=== PATIENT | female | born 1975 | race Caucasian/White ===

== ENCOUNTER → 2020-12-15 17:04 | Outpatient (CLI) | payer BC, SELFPAY ==
--- NOTE | ~2020-12-15 | MM_ITS ---
EXAMINATION: MM screening [facility] BI w carissa HISTORY: Screening mammogram TECHNIQUE: Craniocaudal and mediolateral oblique 3-D tomosynthesis images were obtained and synthetic 2-D images were generated. CAD analysis was submitted and interpreted. COMPARISON: 07/26/2019, 06/16/2018 BREAST PARENCHYMAL COMPOSITION: The breasts are almost entirely fatty. FINDINGS: There is no evidence of suspicious mass, calcification, or architectural distortion to sugg est malignancy in either breast. There has been no suspicious interval change. IMPRESSION: 1. No mammographic evidence of malignancy. 2. Recommend routine screening mammography in one year. BI-RADS Category 1: Negative Reviewed, dictated and finalized at location A. [employer]PER[employer]
== END ==
PROVIDERS: Visit Provider Nurse Practitioner
DX: Z12.31 Encounter for screening mammogram for malignant neoplasm of breast (principal)
CPT/HCPCS: 77063; 77067

== ENCOUNTER → 2021-08-15 14:19 | Outpatient (CLI) | payer BC, SELFPAY ==
--- NOTE | ~2021-08-15 | US_ITS ---
US transvaginal DATE: 08/15/2021 14:51 INDICATION: Abnormal uterine bleeding; irregular bleeding every 3-4 days TECHNIQUE: Real-time imaging via transvaginal approach COMPARISON: 05/12/2018 transvaginal pelvic ultrasound FINDINGS: The retroverted uterus measures 8.5 cm height, 4.7 cm anteroposterior and 5.0 cm transverse dimension. The central endometrial echo complex measures 7 mm, within normal range. Nabothian cysts of the uterine cervix. Right ovary measures 2.3 x 1.8 x 2.0 cm, with vascular flow and follicles. The left ovary is not demonstrated. No pelvic mass or abnormal pelvic free fluid collection is noted. IMPRESSION: Left ovary not demonstrated; otherwise unremarkable examination Reviewed, dictated and finalized at Location A. Reviewed, dictated and finalized at location A.
== END ==
PROVIDERS: Visit Provider Nurse Practitioner
DX: N93.8 Other specified abnormal uterine and vaginal bleeding (principal)
CPT/HCPCS: 76830

== ENCOUNTER 2021-10-29 00:08 | Day surgery (SDC) | payer BC, SELFPAY ==
[2021-10-10 10:46] VITALS: BMI 57.9
--- NOTE | 2021-10-10 10:52 | PC.NURSE ---
Report to the Outpatient Waiting Room, entrance under the green pavilion located off [facility], at time 0900 on date 10/15/21. OR Time: 1100. - You will be asked a series of questions to screen for COVID 19 for your protection. - A mask is required within the hospital. - No visitors are allowed at this time. Preoperative COVID Testing Requirements: No COVID Test needed if: (proof is required; if not received patient will have Rapid Test prior to entry) - Patient has received COVID Vaccine at least 14 days prior to procedure date or - Patient has positive COVID test result within last 90 days of surgery date. COVID Test needed if above criteria is not met Patients may have clear liquids (water, carbonated beverages, clear teas, apple juice) until 3 hours prior to surgery with a maximum of 20 ounces. - No food from midnight until time of surgery Take the following medications with a SIP of water the morning of surgery: NONE Medications to discontinue per physician: VITAMINS/SUPPLEMENTS Date to take last dose: 10/11/21 Please no make-up, nail frisian, hairspray, perfume, deodorant, or body powder the day of surgery. No jewelry (including any body piercings) or valuables the day of surgery, leave them at home. Please take a shower or bath the night before, or the morning of, surgery with an antibacterial soap. Wear comfortable, loose fitting clothing. Children are encouraged to wear pajamas. - Jewelry must be removed prior to entering the operating room. Rings and piercings that are not removed may be cut off. - The hospital will not accept responsibility for valuables. - Please leave all valuables, including medications, at home the day of surgery. If you are going home after surgery, a licensed hearse driver must drive you home. - NO public transportation without another adult. - We recommend that an adult stay with you for 24 hours following discharge. - We also recommend that you do not drive, make important decision, drink alcoholic beverages, or take any drugs that were not prescribed by your health care provider for at least 24 hours after your discharge time. Follow any additional instructions given to you from your surgeon. Telephone instructions given to FELICE DIMAS and asked if any additional questions and then verbalized understanding. Patient advised to call surgeon office or pre surgery nurse liaison [phone] if any additional questions.
--- NOTE | 2021-10-15 07:34 | WPDHPUPDATE1 ---
History and Physical Update Update Date/Time: 10/15/21 07:34 History and Physical has been reviewed, including an updated exam of the patient. There are NO changes in the patient's condition. Risks, benefits, and alternatives have been discussed and questions answered. Patient agrees to proceed with procedure.
--- NOTE | 2021-10-15 07:34 | PM.HPGS ---
History of Present Illness History of Present Illness Consent: Risks, benefits, and alternatives have been discussed and questions answered. Patient agrees to proceed with procedure. Chief complaint: Abnormal Uterine Bleeding Narrative: Mehreen Early is a 46 year old female with onset of irregular cycles January of 2021. Patient presented to the office August 10, 2021 with reports irregular cycles for 6 months. Patient states she is bleeding frequently with no pattern and 7 days heavy some days light. It was recommended to proceed with hysteroscopy D&C. Risks of infection, bleeding, and perforation were reviewed. Possible pathology was also discussed. Review of Systems Review of Systems: not repeated day of surgery; patient states no changes in status PMFSH Past Medical History Medical History (Updated 10/15/21 @ 07:38 by Tarah Fernandes MD) HTN (hypertension) PCOS (polycystic ovarian syndrome) Surgical History Surgical History (Updated 10/15/21 @ 07:37 by Tarah Fernandes MD) History of Hx of tonsillectomy Social History Social History Smoking status: Never smoker Alcohol intake: never Substance use: never Substance use type: does not use Living arrangements: with family Spiritual care concerns: No Meds Home Medications and Allergies Home Medications Medication Instructions Recorded Confirmed Type ascorbic acid (vitamin C) [Vitamin 250 mg PO DAILY 10/10/21 10/10/21 History C] cholecalciferol (vitamin D3) 25 mcg PO DAILY 10/10/21 10/10/21 History [Vitamin D3] Allergies Allergy/AdvReac Type Severity Reaction Status Date / Time Penicillins Allergy Mild HIVES - Unverified 10/10/21 10:44 PER OB Exam Narrative: BMI of 59 Const: General: healthy appearing and alert Orientation/consciousness: patient oriented x3 GI: GI Palp: Yes Soft to palpation, No Tenderness to palpation present (GI) and No Palpable mass present : External Female Exam: normal external appearance Speculum Exam - Vagina: normal appearance of the vagina and normal vaginal discharge Speculum Exam - Cervix: normal appearance of the cervix Bimanual exam- vagina & uterus: uterine size normal and consistency normal Bimanual Exam- Adnexa, other: normal adnexae and No adnexal tenderness Neuro: General: patient oriented x3 Assessment and Plan Assessment and plan (1) Menometrorrhagia: Code(s): N92.1 - Excessive and frequent menstruation with irregular cycle Status: Acute Assessment and Plan: The plan is to proceed with D&C hysteroscopy.
--- NOTE | 2021-10-25 10:35 | PC.NURSE ---
Pt states no changes in medication since initial interview. Procedure was rescheduled due to pt illness. Pt states she tested negative for Covid x2 tests and symptoms are better. New pre-op instructions reviewed with pt. Pt denies further questions at this time.
--- NOTE | 2021-10-25 10:37 | PC.NURSE ---
Report to the Outpatient Waiting Room, entrance under the green pavilion located off [facility], at time 0615 on date 10/29/21. OR Time: 0815. - You will be asked a series of questions to screen for COVID 19 for your protection. - A mask is required within the hospital. - No visitors are allowed at this time. Preoperative COVID Testing Requirements: No COVID Test needed if: (proof is required; if not received patient will have Rapid Test prior to entry) - Patient has received COVID Vaccine at least 14 days prior to procedure date or - Patient has positive COVID test result within last 90 days of surgery date. COVID Test needed if above criteria is not met Patients may have clear liquids (water, carbonated beverages, clear teas, apple juice) until 3 hours prior to surgery with a maximum of 20 ounces. - No food from midnight until time of surgery Take the following medications with a SIP of water the morning of surgery: NONE Medications to discontinue per physician: VITAMINS/SUPPLEMENTS Date to take last dose: 10/25/21 Please no make-up, nail thai, hairspray, perfume, deodorant, or body powder the day of surgery. No jewelry (including any body piercings) or valuables the day of surgery, leave them at home. Please take a shower or bath the night before, or the morning of, surgery with an antibacterial soap. Wear comfortable, loose fitting clothing. Children are encouraged to wear pajamas. - Jewelry must be removed prior to entering the operating room. Rings and piercings that are not removed may be cut off. - The hospital will not accept responsibility for valuables. - Please leave all valuables, including medications, at home the day of surgery. If you are going home after surgery, a licensed local company refrigerated truck driver must drive you home. - NO public transportation without another adult. - We recommend that an adult stay with you for 24 hours following discharge. - We also recommend that you do not drive, make important decision, drink alcoholic beverages, or take any drugs that were not prescribed by your health care provider for at least 24 hours after your discharge time. Follow any additional instructions given to you from your surgeon. Telephone instructions given to FELICE DIMAS and asked if any additional questions and then verbalized understanding. Patient advised to call surgeon office or pre surgery nurse liaison [phone] if any additional questions.
[2021-10-29 06:21] VITALS: BP 169/118; PULSE 78; RESP 20; TEMP 36.6; O2SAT 100
[2021-10-29] MEDS: ACETAMINOPHEN 500 MG TABLET 1000 MG PO (06:56)
[2021-10-29] MEDS: LACTATED RINGERS 1,000 ML 30 ML IV CONT (07:00)
--- NOTE | 2021-10-29 07:07 | WPDHPUPDATE1 ---
History and Physical Update Update Date/Time: 10/29/21 07:07 History and Physical has been reviewed, including an updated exam of the patient. There are NO changes in the patient's condition. Risks, benefits, and alternatives have been discussed and questions answered. Patient agrees to proceed with procedure.
--- NOTE | 2021-10-29 07:07 | PM.HPGS ---
History of Present Illness History of Present Illness Consent: Risks, benefits, and alternatives have been discussed and questions answered. Patient agrees to proceed with procedure. Chief complaint: Abnormal Uterine Bleeding Narrative: Mehreen Early is a 46 year old female with abnormal uterine bleeding. Patient with frequent, random bleeding episodes for over 6 months. U/s normal endometrium. Recommend futher evaluation with hysteroscopy and D&C. Risks of infection, bleeding, perforation, and possible pathology discussed. Agrees to proceed. Review of Systems Review of Systems: not repeated day of surgery; patient states no changes in status [facility] Past Medical History Medical History (Updated 10/15/21 @ 07:38 by Tarah Fernandes MD) HTN (hypertension) PCOS (polycystic ovarian syndrome) Surgical History Surgical History (Updated 10/15/21 @ 07:37 by Tarah Fernandes MD) History of Hx of tonsillectomy Social History Social History Smoking status: Never smoker Alcohol intake: never Substance use: never Substance use type: does not use Living arrangements: with family Spiritual care concerns: No Meds Home Medications and Allergies Home Medications Medication Instructions Recorded Confirmed Type ascorbic acid (vitamin C) [Vitamin 250 mg PO DAILY 10/10/21 10/29/21 History C] cholecalciferol (vitamin D3) 25 mcg PO DAILY 10/10/21 10/29/21 History [Vitamin D3] Allergies Allergy/AdvReac Type Severity Reaction Status Date / Time Penicillins Allergy Mild HIVES - Unverified 10/29/21 06:55 PER OB Exam Const: General: alert and other Nutritional Appearance: other (BMI 59) Orientation/consciousness: patient oriented x3 Resp: Effort & Inspection: normal respiratory effort Auscultation: clear to auscultation bilaterally Cardio: Rate: regular rate Rhythm: regular rhythm GI: GI Palp: Yes Soft to palpation, No Tenderness to palpation present (GI) and No Palpable mass present : External Female Exam: normal external appearance Speculum Exam - Vagina: normal appearance of the vagina and normal vaginal discharge Speculum Exam - Cervix: Other cervical findings present (very difficult to visualize cervix) Bimanual exam- vagina & uterus: uterine size normal and consistency normal Bimanual Exam- Adnexa, other: normal adnexae and No adnexal tenderness Neuro: General: patient oriented x3 Assessment and Plan Assessment and plan (1) Menometrorrhagia: Code(s): N92.1 - Excessive and frequent menstruation with irregular cycle Status: Acute Assessment and Plan: Plan to proceed with hysteroscopy and D&C
--- NOTE | 2021-10-29 07:22 | WPDANESEPPF ---
Anes - Initial Pre Proc Eval Procedure: Operation Date: 10/15/21 11:00 Proposed Procedures p Hysteroscopy, Dilation and Curettage - Tarah Fernandes MD Operation Date: 10/29/21 08:15 Proposed Procedures p Hysteroscopy Dilation and Curettage - Tarah Fernandes MD Date/Time: 10/29/21 07:22 Surgeon: Tarah Fernandes MD Pre Op Diagnosis: Abnormal Uterine Bleeding Patient Data Age: 46 Gender: F Height: 1.7 m Weight: 167.83 kg Allergies Allergy/AdvReac Type Severity Reaction Status Date / Time Penicillins Allergy Mild HIVES - Unverified 10/29/21 06:55 PER OB Home Medications Medication Instructions Recorded Confirmed Type ascorbic acid (vitamin C) [Vitamin 250 mg PO DAILY 10/10/21 10/29/21 History C] cholecalciferol (vitamin D3) 25 mcg PO DAILY 10/10/21 10/29/21 History [Vitamin D3] Patient hx anesthesia problems: none Family hx anesthesia problems: none Results Review: All pre-operative results and documents have been reviewed as part of the pre-operative evaluation. [facility] [place] Past Medical History Medical History HTN (hypertension) PCOS (polycystic ovarian syndrome) Surgical History Surgical History History of Hx of tonsillectomy Social History Social History Smoking status: Never smoker Alcohol intake: never Substance use: never Substance use type: does not use Living arrangements: with family Spiritual care concerns: No Anes - Eval Final PreProcedure Day of Procedure 10/29/21 07:22 Patient weight: super morbidly obese Heart: regular rate and rhythm Lungs: clear to auscultation Airway: Mallampati scale class II Neurological: alert and oriented Last oral intake: >/= 8 hours ASA classification: III Emergent: no Anesthetic plan: proceed Anesthesia type and monitoring: general GIVS and standard monitoring Results Review: All pre-operative results and documents have been reviewed as part of the pre-operative evaluation. Informed Consent: The patient's anesthetic plan and its attendant risks and benefits were discussed with the patient/family/POA. Questions were solicited and answers provided to the satisfaction of the patient/family/POA.
[2021-10-29] MEDS: LIDOCAINE HCL 1% PF 30 ML VIAL INFILTRATE (08:26)
--- NOTE | 2021-10-29 08:55 | W.PM.PROC2 ---
Procedure Note - Detailed Date of Procedure 10/29/21 Pre-op Diagnosis Abnormal Uterine Bleeding Post-op Diagnosis same Procedure Performed D&C hysteroscopy with MyoSure resection Surgeon Tarah Fernandes MD Anesthesia MAC and local Findings Cervix is very deep set and the vagina narrows as it enters the upper portion of the vagina. Uterus sounds to 8cm. Large central polyp that is very vascular. Remainder of endometrium appears grossly normal Description of Procedure The patient was taken to the operating room and placed under anesthesia in the dorsal lithotomy position. She was prepped and draped in the usual sterile fashion. The Graves speculum was placed in unable to be opened. The Sosa speculum was placed and upon opening it no cervix is visible. The tenaculum is used to grasp the moved the posterior tissue at of the visual field and the cervix is barely visible. A 2nd tenaculum was used to grasp the anterior lip of the cervix. The cervix is attempted to be pulled down into the speculum and this is somewhat successful. The os Finders are used to enter the cervix. The uterus is sounded to 8cm. The angle of the canal is very anterior. The cervix is serially dilated with difficulty. The hysteroscope is placed in the external cervix and in order to get angle correct the speculum had to be removed. The hysteroscope was placed inside the endometrial cavity with the above-stated findings. The MyoSure device is opened and with the same difficulty it is placed. The polyp was removed under direct visualization. The MyoSure device is removed the speculum replaced and the medium sharp curette used to sharply curette the endometrium until a good uterine cry is noted in all areas. All instruments were then removed and the patient awakened from anesthesia and taken to recovery in stable condition. Sponge, needle, and instrument counts are correct per the OR staff. Estimated Blood Loss 10 Drains No Packing No Pathology yes (Endometrial shavings and curettings) Complications No immediate complications Condition stable Disposition PACU
[2021-10-29] MEDS: KETOROLAC 30 MG/ML VIAL (*BKC) IV PUSH (08:59)
[2021-10-29 09:02] VITALS: BP 137/92; PULSE 70; RESP 16; O2SAT 97
[2021-10-29] MEDS: fentaNYL CITRATE INJ (*CRX) 100 MCG/2 ML VIAL 25 MCG IV PUSH (09:18)
[2021-10-29 09:30] VITALS: BP 139/79; PULSE 70; RESP 18; O2SAT 96
[2021-10-29] MEDS: oxyCODONE HCL (*CRX) 5 MG TAB IR PO (09:36)
[2021-10-29 10:00] VITALS: BP 137/96; PULSE 61; RESP 18
== END 2021-10-29 10:20 | disposition home or self-care (01) ==
PROVIDERS: Visit Provider Obstetrics & Gynecology Gynecology
PROC: 0U5B8ZZ Destruction of Endometrium, Via Natural or Artificial Opening Endoscopic (ICD-10-PCS; CPT 58563; principal; 2021-10-29 08:15)
DX: N93.9 Abnormal uterine and vaginal bleeding, unspecified (principal); N84.1 Polyp of cervix uteri; I10 Essential (primary) hypertension; E28.2 Polycystic ovarian syndrome; E66.01 Morbid (severe) obesity due to excess calories; Z68.43 Body mass index [BMI] 50.0-59.9, adult
CPT/HCPCS: 58558; 88305; A9270; J1885; J2250; J2704; J3010; J7030; J7120

== ENCOUNTER → 2022-03-19 11:15 | Outpatient (CLI) | payer BC, SELFPAY ==
--- NOTE | ~2022-03-19 | MM_ITS ---
EXAMINATION: MM screening [facility] BI w carissa HISTORY: Screening mammogram TECHNIQUE: Craniocaudal and mediolateral oblique 3-D tomosynthesis images were obtained and synthetic 2-D images were generated. CAD analysis was submitted and interpreted. COMPARISON: 12/15/2020, 07/26/2019, 06/16/2018 BREAST PARENCHYMAL COMPOSITION: The breasts are almost entirely fatty. FINDINGS: There is no suspicious mass, calcification, or architectural distortion to suggest malignan cy in either breast. There has been no suspicious interval change. IMPRESSION: 1. No mammographic evidence of malignancy. 2. Recommend routine screening mammography in one year. BI-RADS Category 1: Negative Reviewed, dictated and finalized at location A.
== END ==
PROVIDERS: Visit Provider Obstetrics & Gynecology Gynecology
DX: Z12.31 Encounter for screening mammogram for malignant neoplasm of breast (principal)
CPT/HCPCS: 77063; 77067

== ENCOUNTER → 2023-03-21 12:49 | Outpatient (CLI) | payer BC, SELFPAY ==
--- NOTE | ~2023-03-21 | MM_ITS ---
EXAMINATION: MM screening [facility] BI w car[facility] HISTORY: Screening TECHNIQUE: Craniocaudal and mediolateral oblique 3-D tomosynthesis images were obtained and synthetic 2-D images were generated. CAD analysis was submitted and interpreted. COMPARISON: Comparison to multiple prior studies sequentially, with oldest reviewed study dated 06/16. BREAST PARENCHYMAL COMPOSITION: The breasts are almost entirely fatty. FINDINGS: There is no evidence of suspicious mass, calcification, or architectural distortion to sugg est malignancy in either breast. There has been no suspicious interval change. IMPRESSION: 1. No mammographic evidence of malignancy. 2. Recommend routine screening mammography in one year. BI-RADS Category 1: Negative Reviewed, dictated and finalized at location A.
== END ==
PROVIDERS: PCP Nurse Practitioner; Visit Provider Nurse Practitioner
DX: Z12.31 Encounter for screening mammogram for malignant neoplasm of breast (principal)
CPT/HCPCS: 77063; 77067

== ENCOUNTER 2025-04-14 12:18 | Outpatient (CLI) | payer BC, SELFPAY ==
--- NOTE | ~2025-04-14 | MM_ITS ---
EXAMINATION: MM screening [facility] BI w car[facility] HISTORY: Screening mammogram TECHNIQUE: Craniocaudal and mediolateral oblique 3-D tomosynthesis images were obtained and synthetic 2-D images were generated. CAD analysis was submitted and interpreted. COMPARISON: 03/21/2023, 03/19/2022, 12/15/2020 BREAST PARENCHYMAL COMPOSITION:Not Dense. There are scattered areas of fibroglandular density. FINDINGS: No suspicious mass, calcification, or architectural distortion are identified in either juanita ast to suggest malignancy. There has been no suspicious interval change. IMPRESSION: No mammographic evidence of malignancy. Recommend routine screening mammography in one year. BI-RADS Category 1: Negative Reviewed, dictated and finalized at location .
== END 2025-04-14 12:19 | disposition home or self-care (01) ==
LOC: MICIMG 12:21
PROVIDERS: PCP Obstetrics & Gynecology Gynecology; Visit Provider Obstetrics & Gynecology Gynecology
DX: Z12.31 Encounter for screening mammogram for malignant neoplasm of breast (principal)
CPT/HCPCS: 77063; 77067